=== PATIENT | male | born 1975 | race American Indian/Alaskan Native ===

== ENCOUNTER 2017-07-13 09:32 | Emergency (ER) | payer OTHER ==
[2017-07-13 09:42] VITALS: BP 140/78
== END 2017-07-13 11:15 | disposition left against medical advice (07) ==
LOC: EDSEX → ED 09:32
DX: M54.9 Dorsalgia, unspecified (principal); Z53.21 Procedure and treatment not carried out due to patient leaving prior to being seen by health care provider

== ENCOUNTER 2017-07-13 23:04 | Emergency (ER) | payer OTHER ==
[2017-07-14] MEDS ORDERED: TORADOL IM ONE (07:41)
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
[2017-07-14 09:21] VITALS: BP 140/86
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
== END 2017-07-14 09:21 | disposition home or self-care (01) ==
LOC: ED 23:04
DX: M54.5 Low back pain (principal); R51 Headache; V43.52XA Car driver injured in collision with other type car in traffic accident, initial encounter; Y93.9 Activity, unspecified; Y99.9 Unspecified external cause status; Y92.410 Unspecified street and highway as the place of occurrence of the external cause
CPT/HCPCS: 70450; 72100; 96372; 99284; J1885